=== PATIENT | male | born 1970 | race Caucasian/White ===

== ENCOUNTER 2018-07-13 15:24 | Outpatient (CLI) | payer BC ==
--- NOTE | 2018-07-13 15:50 | RAD ---
XR Hip Lt 2-3 View HISTORY:Back and left hip pain. COMPARISON: None. FINDINGS: Joint space appears well-preserved. No evidence of any significant arthritic change. Questi onable tiny cyst along the lateral margin of femoral head neck junction. If there are clinical findings that would suggest femoral acetabular impingement MR arthrography may be helpful. IMPRESSION: Essentially unremarkable hip as described above.
--- NOTE | 2018-07-13 15:59 | RAD ---
LUMBAR SPINE FOUR VIEWS: 07/13/18 HISTORY: Low back pain. Left leg radiculopathy. COMPARISON: None. FINDINGS: AP, lateral neutral, lateral flexion and lateral extension views are obtained with the patient bearin g weight. Four lumbar type vertebral bodies. Lumbar spine vertebral body height is maintained. There is partial sacralization of L5. There is preservation of the disc space height. No spondylolisthesis or spondylolysis in the neutral position. No abnormal motion upon extension or flexion. IMPRESSION: 1. Partial sacralization of what is deemed to be the L5 vertebral body level. 2. No fractures. 3. No spondylolisthesis or spondylolysis. POS: [facility]
== END 2018-07-13 15:25 | disposition home or self-care (01) ==
LOC: BICRAD 15:24
PROVIDERS: ATTEND Family Medicine
DX: M54.16 Radiculopathy, lumbar region (principal); R53.1 Weakness
CPT/HCPCS: 72110

== ENCOUNTER 2018-11-22 08:45 | Observation (INO) | payer BC ==
[2018-11-22] MEDS ORDERED: Aspirin Chewable 81 MG TAB ONE (08:47)
[2018-11-22 09:03] LABS: #Basophils 0.1 thou/uL (0.0-0.2); #Eosinphils 0.1 thou/uL (0.0-0.7); #Lymphocytes 2.2 thou/uL (1.20-3.40); #Monocytes 0.7 thou/uL (0.11-0.59); #Neutrophils 5.6 thou/uL (1.40-6.50); %Basophils 0.8 % (0.0-1.0); %Lymphocytes 25.1 % (21.0-51.0); %Monocytes 7.6 % (0.0-10.0); %Neutrophils 65.6 % (42.0-75.0); Hemoglobin 16.4 g/dL (14.0-18.0); Mean Corpuscular Volume 85.7 fL (78.0-98.0); Mean Platelet Volume 7.2 fL (7.4-10.4); Platelet Count 202 thou/uL (130-400); RBC Distribution Width 12.4 % (11.5-14.5); Red Blood Cell (RBC) Count 5.46 mill/uL (4.70-6.10); White Blood Cell (WBC) Count 8.6 thou/uL (4.8-10.8)
--- NOTE | 2018-11-22 09:19 | RAD ---
PORTABLE CHEST: Date: 11/22/18 HISTORY: Chest pain that started 5 minutes ago. FINDINGS: Heart size within normal limits considering portable and slightly lordotic technique. Mediastinal str uctures appear unremarkable. Lungs are clear of any infiltrative process. There are no signs of failu re. IMPRESSION: No active intrathoracic disease. POS: [facility]
[2018-11-22 09:26] LABS: ALT (SGPT) 14 U/L (8-55); AST (SGOT) 15 U/L (5-34); Albumin 4.7 g/dL (3.5-5.0); Alkaline Phosphatase 93 U/L (40-150); Anion Gap 12 mmol/L (10-20); BUN (Urea Nitrogen) 12 mg/dL (8.9-20.6); Bilirubin, Total 0.9 mg/dL (0.2-1.2); CK (CPK) 101 U/L (30-200); Calc. Creatinine Clearance 0 mL/min (70-130); Calcium 9.8 mg/dL (7.8-10.44); Carbon Dioxide 27 mmol/L (22-29); Chloride 104 mmol/L (98-107); Estimated GFR-MDRD 68; Globulin 2.9 g/dL (2.4-3.5); Glucose 107 mg/dL (70-105); Protein, Total 7.6 g/dL (6.0-8.3); Sodium 139 mmol/L (136-145)
[2018-11-22] MEDS ORDERED: Nitroglycerin 2% Ointment 1 INCH/1 GM Packet ONE (10:00)
--- NOTE | 2018-11-22 10:13 | PDOC.FPRHP ---
- History of Present Illness Chief Complaint: chest pain History of Present Illness: Viet Dumont is a 48 year old M with a PMH of HTN, GERD, and BLANKA who presents to the ED for chest pain. Pain located on the left side of chest. It was a sharp pain that radiates to neck and left arm, rated as 5/10 initially then worsened to 8 or 9 out of ten. Now his pain is back to 5/10 after receiving ASA. He had diaphoresis while the chest pain occurred and has tingling in his left hand. Denies nausea, fevers, dyspnea, palpitations. He denies any exertional chest pain previously. When the pain started this morning, he was just sitting at his desk around 8:30. He got up and walked around, but the pain did not resolve so he called his and came to the ER within 15 minutes. He did not take any meds before arriving at the ER. He says he did take a Prilosec though when he woke up this morning. His last meal was yesterday night. He says he has never had pain similar to this. He has a history of HTN and was given a heart monitor to wear by his PCP for it 8 years ago. He was previously on medication for his HTN for the past 15 years, but lost weight on the keto diet, so his BP came down and he came off his medicine 3-4 months ago. He did help his dad move in to a new apartment yesterday and he endorses lifting items > 40 lbs. He says this is not his usual activity level during any given day. He used to work out frequently, but has not regular worked out for some time. ED Course: The patient was given ASA and nitro in the ER. He came in with an elevated blood pressure. He has a significant FMH of heart attack. His troponin was negative x1. - History PMHx: HTN, BLANKA, GERD PSHx: None FHx: Heart Attack- Uncles ( at 49 and 55) as well as GM, DM- GM Social: He occasionally drinks. He currently dips. He used to smoke 1 PPD for 15 years but quit at the age of 31. He does vape marijuana occasionally. The last time he vaped was Tuesday. - Review of Systems General: denies: fever/chills Eyes: denies: vision changes ENT: reports: nasal congestion, rhinorrhea Respiratory: reports: cough, congestion, shortness of breath Cardiovascular: reports: chest pain. denies: edema Gastrointestinal: denies: nausea, vomiting, diarrhea Genitourinary: denies: dysuria Skin: denies: rashes, itching Musculoskeletal: denies: pain, tenderness Neurological: denies: numbness, weakness Psychological: reports: anxiety. denies: depression - Vital signs BP: 169/105 HR: 81 RR: 14 Tmax: 98 Pox: 98% on RA Wt: 84.6 kg - Physical Exam Constitutional: NAD, awake, alert and oriented, well developed HEENT: normocephalic and atraumatic, PERRLA, EOMI, TM's clear and intact, normal nasal mucosa, MMM, oropharynx clear Neck: supple, FROM Chest: no-tender to palpation Heart: RRR, normal S1/S2, no murmurs/rubs/gallops Lungs: CTAB Abdomen: soft, non-tender, bowel sounds present Musculoskeletal: normal structure, normal tone, ROM grossly normal Neurological: CN II-XII intact Skin: no jaundice Heme/Lymphatic: no unusual bruising or bleeding Psychiatric: normal mood and affect FMR H&P: Results - Labs Result Diagrams: 11/22/18 08:51 11/22/18 08:51 Lab results: WBC 8.6 thou/uL (4.8-10.8) 11/22/18 08:51 Hgb 16.4 g/dL (14.0-18.0) 11/22/18 08:51 Hct 46.8 % (42.0-52.0) 11/22/18 08:51 MCV 85.7 fL (78.0-98.0) 11/22/18 08:51 Plt Count 202 thou/uL (130-400) 11/22/18 08:51 Neutrophils % 65.6 % (42.0-75.0) 11/22/18 08:51 Sodium 139 mmol/L (136-145) 11/22/18 08:51 Potassium 4.0 mmol/L (3.5-5.1) 11/22/18 08:51 Chloride 104 mmol/L (98-107) 11/22/18 08:51 Carbon Dioxide 27 mmol/L (22-29) 11/22/18 08:51 BUN 12 mg/dL (8.9-20.6) 11/22/18 08:51 Creatinine 1.15 mg/dL (0.7-1.3) 11/22/18 08:51 Glucose 107 mg/dL (70-105) H 11/22/18 08:51 Calcium 9.8 mg/dL (7.8-10.44) 11/22/18 08:51 Total Bilirubin 0.9 mg/dL (0.2-1.2) 11/22/18 08:51 AST 15 U/L (5-34) 11/22/18 08:51 ALT 14 U/L (8-55) 11/22/18 08:51 Alkaline Phosphatase 93 U/L (40-150) 11/22/18 08:51 Creatine Kinase 101 U/L (30-200) 11/22/18 08:51 B-Natriuretic Peptide 12.1 pg/mL (0-100) 11/22/18 08:51 Serum Total Protein 7.6 g/dL (6.0-8.3) 11/22/18 08:51 Albumin 4.7 g/dL (3.5-5.0) 11/22/18 08:51 - EKG Interpretation EKG: EKG: NSR, no ST changes, ectopics - Radiology Interpretation Chest x-ray Status: image reviewed by me, report reviewed by me (no acute intrathoracic abnormalities) FMR H&P: A/P - Problem List (1) Chest pain Current Visit: Yes Status: Acute Code(s): R07.9 - CHEST PAIN, UNSPECIFIED Qualifiers: Ischemic chest pain type: unstable angina pectoris (2) HTN (hypertension) Current Visit: Yes Status: Acute Code(s): I10 - ESSENTIAL (PRIMARY) HYPERTENSION (3) GERD (gastroesophageal reflux disease) Current Visit: Yes Status: Chronic Code(s): K21.9 - GASTRO-ESOPHAGEAL REFLUX DISEASE WITHOUT ESOPHAGITIS (4) BLANKA (obstructive sleep apnea) Current Visit: Yes Status: Chronic Code(s): G47.33 - OBSTRUCTIVE SLEEP APNEA (ADULT) (PEDIATRIC) - Plan Pt is a 48 yo M with history of GERD, HTN, and BLANKA who presents for chest pain that began this morning. 1. Chest Pain EKG: Normal * Troponin: neg x1 * Obtaining lipid panel, TSH, Mag, Phos * CBC and CMP were wnl * Ordering stress test * Continuous telemetry * ASA ordered, Nitro prn * Will calculate ASCVD upon lab completion * HEART Score: 4 2. HTN BP: 169/105 * Previously on BP meds for 15 years but quit 4 months ago * Will monitor bp this stay and consider restarting bp meds 3. GERD Currently on Prilosec * Experiencing cough presently, but has had some sinus congestion and rhinorrhea 4. BLANKA Currently uses a CPAP nightly * Uses Afrin nightly recommended D/C due to nasal congestion and to use flonase Condition: Stable Diet: NPO for stress test DVT Prophylaxis: SCD GI Prophylaxis: Protonix Lines: Peripheral Code Status: Full Dispo: Obs, will d/c in <2 days. FMR H&P: Upper Level - Plan Date/Time: 11/22/18 1004 I, Riky Ornelas MD, have evaluated this patient and agree with findings/plan as outlined by business analytics intern resident. Pertinent changes/additions are listed here. Viet Dumont is a 48 year old M with a PMH of GERD, BLANKA, HTN who presented to the ED for chest pain. Left side chest pain started at 0830 morning prior to arrival, while pt was sitting at desk. Pain radiated to left shoulder and arm. Rate pain as 5/10 that worsened to 8-9/10, that only started to improve after pt got to ER and received aspirin. He had associated diaphoresis. Pt denies nausea, fever, dyspnea, palpitations. He has no history of exertional chest pain or dyspnea. He has no previous work up for ACS, never had a stress. He did wear an event/holter monitor several years ago but palpitations. He has a history of HTN that was treated up until about 3-4 months ago, after he lost about 25-30 lbs on the keto diet. He has a family history for coronary artery disease. Initial trop was negative, EKG showed NSR, no ST changes, normal CXR. We are admitting patient to obs/tele to r/o ACS. Ordered cariolite stress test. Trending troponins. Checking Mg, Phos, TSH, FLP. Will continue to monitor BPs, will consider initiation of antihypertensive regimen. Please see business analytics intern note above for full H&P, which I have reviewed and agree with.
[2018-11-22] MEDS ORDERED: Senokot S 8.6-50 MG TAB PO PRN (10:31)
[2018-11-22] MEDS ORDERED: Loperamide HCl 2 MG CAP PO PRN ×2 (10:31)
[2018-11-22] MEDS ORDERED: Ondansetron ODT 4 MG TAB PO PRN (10:31)
[2018-11-22] MEDS ORDERED: Nitroglycerin 0.4 MG TAB (25 Tab Bottle) PO PRN (10:31)
[2018-11-22 11:57] LABS: Cardiac Risk 5.6 (Less than 4.5); Cholesterol 222 mg/dl (< 200 Desired); HDL Cholesterol 40 mg/dL (>60 Neg Risk); LDL Cholesterol, Calculated 150 mg/dL; Magnesium 1.9 mg/dL (1.6-2.6); Phosphorus 3.1 mg/dL (2.3-4.7); Triglycerides 162 mg/dL (Less than 150)
[2018-11-22 12:19] LABS: Troponin I Less than 0.010 ng/mL (< 0.028)
[2018-11-22 13:04] VITALS: BMI 28.5
[2018-11-22 15:18] LABS: Troponin I Less than 0.010 ng/mL (< 0.028)
[2018-11-22] MEDS: Acetaminophen 325 MG TAB PO PRN (17:12)
--- NOTE | 2018-11-22 17:28 | HP ---
HISTORY OF PRESENT ILLNESS: I have examined the patient. I have discussed the case with Dr. Riky Ornelas and with Dr. Oziel Tim, and agree with their assessment and plan. Briefly, Mr. Dumont is a pleasant 48-year-old white male patient with no prior history of coronary artery disease. He was sitting in a classroom today when he had onset of left-sided chest discomfort at rest. This was unassociated with diaphoresis, but he did have some nausea. The pain was to the left side of the chest radiating into his neck and left arm. He presented to ER with these above complaints. He is currently awake and alert, and having some dull pain on the left side of his chest. It is much less than when he came in. He is in no distress. PHYSICAL EXAMINATION: VITAL SIGNS: His blood pressure is 152/82, his pulse rate is 84 and regular, respirations are 14. He is afebrile. EARS, NOSE, AND THROAT: No erythema or exudate. NECK: Supple. There is no JVD or bruit. CARDIAC: The PMI is in the fifth intercostal space, midclavicular line. There is an S4 gallop. No murmur, no rub are noted. LUNGS: His lungs are clear without rales or wheezes. No respiratory distress. ABDOMEN: His abdomen is flat and soft without guarding, rebound, or rigidity. No abdominal bruits noted. EXTREMITIES: No edema. NEUROLOGIC: No focal deficits. IMAGING STUDIES: EKG is normal. LABORATORY DATA: Initial troponin is less than 0.01. Chemistry: Sodium 139, potassium 4, chloride 104, bicarb 27, BUN 12, and creatinine 1.15. His glucose is 107. Liver enzymes are normal. CBC: White count is 8600, hemoglobin 16.4, hematocrit 46.8, MCV of 85.7. ASSESSMENT: Chest pain, rather atypical and that it occurred at rest and is left-sided. PLAN: Admit stress Myoview and proceed based on findings. Job ID: [id number]
[2018-11-22] MEDS: Ibuprofen 600 MG TAB PO PRN (19:25)
[2018-11-22] MEDS: Famotidine 20 MG TAB PO SCH (19:25)
[2018-11-22] MEDS ORDERED: Atorvastatin Calcium 20 MG TAB PO SCH (21:00)
[2018-11-23] MEDS: Ibuprofen 600 MG TAB PO PRN (04:40)
[2018-11-23 04:58] VITALS: TEMP 97.7
--- NOTE | 2018-11-23 06:27 | PDOC.FM ---
- Subjective Subjective: Pt is doing well. He said he had a headache yesterday after the nitro and not eating all morning, but was given Tylenol and it resolved. BM- yesterday morning. No pain today. - Objective MAR Reviewed: Yes Vital Signs & Weight: Vital Signs (12 hours) Temp Pulse Resp BP BP Pulse Ox 11/23/18 04:40 97.7 F 60 16 126/83 98 11/22/18 23:31 97.9 F 65 23 H 123/70 98 11/22/18 19:49 97.3 F L 66 22 H 153/90 H 98 Weight Weight 85.275 kg I&O: 11/21/18 11/22/18 11/23/18 06:59 06:59 06:59 Intake Total 240 Output Total 400 Balance -160 Result Diagrams: 11/22/18 08:51 11/22/18 08:51 Phys Exam - Physical Examination Constitutional: NAD HEENT: PERRLA, moist MMs Neck: supple, full ROM Respiratory: clear to auscultation bilateral Cardiovascular: RRR, no significant murmur Gastrointestinal: soft, non-tender, positive bowel sounds Musculoskeletal: no edema, pulses present Neurological: moves all 4 limbs Psychiatric: normal affect, A&O x 3 Skin: no rash Dx/Plan (1) Chest pain Code(s): R07.9 - CHEST PAIN, UNSPECIFIED Status: Acute Qualifiers: Ischemic chest pain type: unstable angina pectoris (2) HTN (hypertension) Code(s): I10 - ESSENTIAL (PRIMARY) HYPERTENSION Status: Acute (3) GERD (gastroesophageal reflux disease) Code(s): K21.9 - GASTRO-ESOPHAGEAL REFLUX DISEASE WITHOUT ESOPHAGITIS Status: Chronic (4) BLANKA (obstructive sleep apnea) Code(s): G47.33 - OBSTRUCTIVE SLEEP APNEA (ADULT) (PEDIATRIC) Status: Chronic - Plan Plan: Pt is a 48 yo M with history of GERD, HTN, and BLANKA who presents for chest pain that began this morning. 1. Chest Pain EKG: Normal * Troponin: neg x2 * TSH, Mag, Phos obtained and wnl * lipid panel showed elevated triglycerides and cholesterol * CBC and CMP were wnl * Stress test today * Continuous telemetry * ASA ordered, Nitro prn * ASCVD: 6.2% with start Atorva 20 * HEART Score: 4 2. HTN BP: 169/105 * Previously on BP meds for 15 years but quit 4 months ago * Will monitor bp this stay and consider restarting bp meds * BP have been 123/70-150/90 3. GERD Currently on Prilosec * Experiencing cough presently, but has had some sinus congestion and rhinorrhea 4. BLANKA Currently uses a CPAP nightly * Uses Afrin nightly recommended D/C due to nasal congestion and to use flonase Condition: Stable Diet: NPO for stress test DVT Prophylaxis: SCD GI Prophylaxis: Protonix Lines: Peripheral Code Status: Full Dispo: Obs, will possibly d/c today based on stress test.
[2018-11-23] MEDS: Famotidine 20 MG TAB PO SCH (08:03)
[2018-11-23] MEDS: Acetaminophen 325 MG TAB PO PRN (08:03)
[2018-11-23 08:12] VITALS: BP 141/75
[2018-11-23] MEDS ORDERED: Aspirin 325 mg Enteric Coated Tablet PO SCH (09:00)
--- NOTE | 2018-11-23 11:36 | PRG ---
DATE OF SERVICE: 11/23/2018 Mr. Dumont is sitting quietly in bed, in no distress. He is chest pain-free. He is about to go for his stress Myoview. Afterwards if negative, he will be discharged. If positive, we will consult Cardiology for cardiac catheterization. We are instituting medications for his blood pressure which he in fact had taken up until four months ago. Job ID: [id number]
--- NOTE | 2018-11-23 13:34 | NM ---
NM Cardiac Stress W EF WF HISTORY: Chest pain COMPARISON: None. FINDINGS: Examination is performed using 32.3 mCi 90 9M technetium sestamibi on the stress and 29.1 m Ci on the resting images. This shows a normal distribution of radiopharmaceutical. There are no signs of ischemia or scar. Wall motion: There is symmetric contractility to the ventricle. Left ventricular ejection fraction: The calculated left ventricular ejection fraction was 69%. IMPRESSION: Unremarkable myocardial perfusion scan.
--- NOTE | 2018-11-24 01:42 | DIS ---
DATE OF ADMISSION: 11/22/2018 DATE OF DISCHARGE: 11/23/2018 RESIDENT: Oziel Tim MD ADMITTING ATTENDING: Wilberto Turner MD DISCHARGE ATTENDING: Wilberto Turner MD CONSULTS: None. PROCEDURE PERFORMED: Stress test 11/23, which shows normal distribution of radiopharmaceutical with no signs of ischemia or scar. PRIMARY DIAGNOSIS: Atypical chest pain, rule out acute coronary syndrome. SECONDARY DIAGNOSIS: 1. Hypertension 2. Obstructive Sleep Apnea. DISCHARGE MEDICATIONS: 1. Atorvastatin 20 mg at bedtime. 2. Lisinopril 5 mg daily. DISCONTINUED MEDICATIONS: None. HISTORY OF PRESENT ILLNESS: Mr. Dumont is a 48-year-old male with a past medical history of hypertension, GERD and BLANKA, who presented to the ED for chest pain. The pain is on the left side of the chest. It is sharp pain that radiates to the neck and left arm, initially 5/10, that later worsened to 9/10 but after aspirin, has been reduced to 5/10. He was diaphoretic when the chest pain occurred and has tingling in his left hand. He denies nausea, fever, dyspnea, or palpitations. He denies exertional chest pain. When the pain started this morning, he was just sitting in the desk around 8:30, got up and walked around, but the pain did not resolve, so he called his and came to the ER within 15 minute. He did not take any medications before arriving to the ER. He says he did take a Prilosec 20 mg this morning. He says he has never had pain similar to this. He has a history of hypertension and was on a heart monitor by his PCP about 8 years ago for high blood pressure. He was previously on medication for hypertension for the past 15 years but due to weight loss on a keto diet, his blood pressure came down and he came off the medications 3 to 4 months ago. He did help his dad move into a new apartment yesterday and he endorses lifting items greater than 40 pounds. He says this is not his usual activity level during any given day. He used to working out frequently, but has not worked out for sometime. In the ED, the patient was given aspirin and nitroglycerin in the ER. He came with an elevated blood pressure. He has significant family medical history of heart attack. His troponins were negative x2. 1. Chest pain EKG was normal. Troponins were negative x2. TSH, Mag, and phos were obtained and within normal limits. Lipid panel showed elevated triglycerides and cholesterol. ASCVD score was calculated at 6.2% and recommended mild intensity statin, so atorvastatin 20 mg was started. CBC and CMP were within normal limits. Stress test was normal. His heart score was 4. 2. Hypertension Blood pressure on admission was 169/105. He was on blood pressure medications for 15 years, but stopped taking them 4 months ago. His blood pressures ranged from 123/70 to 150/90. We started him on lisinopril 5. 3. GERD experiencing cough currently on Prilosec 4. BLANKA currently Afrin nightly. Recommended discontinuing due to nasal congestion and to use Flonase instead. DISPOSITION: Stable. DISCHARGE INSTRUCTIONS: 1. Location: Home. 2. Diet: Heart healthy, low-sodium. 3. Activity: As tolerated. 4. Followup: Followup with Dr. Prakash within 3 days of discharge. Job ID: [id number] [facility]
[2018-11-24] MEDS ORDERED: Lisinopril 5 MG TAB PO SCH (09:00)
--- NOTE | 2018-11-25 13:26 | EKG ---
Test Reason : Blood Pressure : / mmHG Vent. Rate : 073 BPM Atrial Rate : 073 BPM P-R Int : 140 ms QRS Dur : 088 ms QT Int : 354 ms P-R-T Axes : -01 015 010 degrees QTc Int : 389 ms Normal sinus rhythm Normal ECG Confirmed by ASHTYN MALIK, BETZY Martinez ([id number]), publication editor VIANNEY WOODS ([id number]) on 11/25/2018 1:25:54 PM Referred By: Confirmed By:BETZY CHAMORRO MD
--- NOTE | 2018-11-28 03:04 | DIS ---
DATE OF ADMISSION: 11/22/2018 DATE OF DISCHARGE: 11/23/2018 RESIDENT: Oziel Tim MD ADMITTING ATTENDING: Wilberto Turner MD CONSULTS: None. PROCEDURES PERFORMED: * Stress test 11/22/2018, showed normal distribution of radiopharmaceutical. There were no signs of ischemia or scar. * Chest x-ray showed no active intrathoracic disease on 11/22. * EKG, 11/22, showed normal sinus rhythm and normal EKG. PRIMARY DIAGNOSIS: Chest pain. SECONDARY DIAGNOSES: 1. Hypertension 2. gastroesophageal reflux disease 3. obstructive sleep apnea DISCHARGE MEDICATIONS: 1. Atorvastatin 20 mg p.o. at bedtime. 2. Lisinopril 5 mg p.o. daily. DISCONTINUED MEDICATIONS: 1. Nitroglycerin. 2. Acetaminophen 650. 3. Loperamide 4 mg, then 2 mg p.r.n. 4. Zofran 4 mg. 5. Senokot two tabs p.o. b.i.d. 6. Ibuprofen 600 mg p.o. q.6 p.r.n. 7. Pepcid 20 mg p.o. b.i.d. 8. Aspirin 325 p.o. daily. HISTORY OF PRESENT ILLNESS: Viet Dumont is a 48-year-old male with a past medical history of hypertension , GERD, and BLANKA, who presented to the ED for chest pain. Pain located on the left side of the chest, it is sharp and radiates to the neck and left arm. He rated it 5/10 initially, then worsened to 9/10. Now, his pain is back to 5/10 after receiving aspirin. He had diaphoresis when the chest pain occurred and has tingling in his left hand. Denies nausea, fevers, dyspnea or palpitations. He denies any exertional chest pain previously when the pain started this morning. He was sitting at his desk around 8:30, he got up and walked around, but the pain did not resolve, so he called his and came to the ER within 15 minutes. He did not take any medications before arriving to the ER. He says he did take Prilosec on 11/22 when he woke up. His last meal was 11/21. He says he has never had pain similar to this. He has a history of hypertension and was on a heart monitor by his PCP 8 years ago. He is previously on medication for his hypertension for the past 15 years, but lost weight on the keto diet, so his blood pressure came down and he came off his medicines 3 to 4 months ago. He did help his Dad move into a new apartment on 11/21 and he endorses lifting items greater than 40 pounds. He says this is not his usual activity level during any given day. He used to work out frequently, but has not really worked out for sometime. In the ED, he was given aspirin and nitroglycerin. He came in with elevated blood pressure. He has a significant family medical history of heart attack. His troponins were negative. 1. Chest pain. * EKG normal. * Troponins negative x2. * TSH, Mag, and phos obtained within normal limits. * Lipid panel shows elevated triglycerides and cholesterol. * Stress test as listed above. * Aspirin ordered and nitroglycerin p.r.n. * ASCVD 6.2. Started atorvastatin 20. * Heart score 4. 2. Hypertension. * Blood pressure 169/105. * Baseline blood pressure medications for 15 years, but quit 4 months ago. * Blood pressures have been 123/70 to 150/90 in the hospital. * He was sent home on lisinopril 5 mg daily. 3. GERD. * Currently on Prilosec. * We will monitor. 4. BLANKA. * Currently uses CPAP nightly. * Uses Afrin nightly. He recommended to discontinue due to nasal congestion and use Flonase. DISPOSITION: Stable. DISCHARGE INSTRUCTIONS: 1. Location: Home. 2. Diet: Heart healthy, low-sodium. 3. Activity: As tolerated. 4. Followup: PCP- Dr. Prakash. Follow up within 7 days. Job ID: [id number] [facility]
== END 2018-11-23 15:19 | disposition home or self-care (01) ==
LOC: ERS 08:45 → ERHOLD 10:30 → 2SW 12:51
PROVIDERS: ADMIT Family Medicine; ATTEND Family Medicine
DX: I20.0 Unstable angina (principal); I10 Essential (primary) hypertension; K21.9 Gastro-esophageal reflux disease without esophagitis; G47.33 Obstructive sleep apnea (adult) (pediatric); F17.290 Nicotine dependence, other tobacco product, uncomplicated; Z79.899 Other long term (current) drug therapy
CPT/HCPCS: 36415; 71045; 78452; 80053; 80061; 82550; 83735; 83880; 84100; 84443; 84484; 85025; 93005; 93017; 94760; A9500; G0378

== ENCOUNTER 2020-11-24 12:45 | Outpatient (CLI) | payer BC ==
[~2020-11-24 12:45] MED LIST: Magnevist 469MG/ML 20 ML VIAL ONE
== END 2020-11-24 12:46 | disposition home or self-care (01) ==
LOC: BICMRI 12:45
PROVIDERS: ATTEND Internal Medicine
DX: N50.811 Right testicular pain (principal); R16.1 Splenomegaly, not elsewhere classified; N43.3 Hydrocele, unspecified
CPT/HCPCS: 74183; 76870; 82565; 93976; A9579